=== PATIENT | male | born 1985 | race African-American/Black ===

== ENCOUNTER 2017-10-01 00:27 | Emergency (ER) | payer MEDICAID ==
[~2017-10-01] VITALS: Ht 182.9 cm; Wt 79.0 kg
[2017-10-01] MEDS ORDERED: SODIUM CHLORIDE 0.9% 1,000 ML IV ONE (00:49)
[2017-10-01 01:18] LABS: CHLORIDE 103 mEq/L (98-107)
[2017-10-01 01:20] LABS: BASOPHILS % 0.2 % (0.0-2.0); EOSINOPHILS % 1.1 % (0.0-5.0); HEMATOCRIT. 44.5 % (42.0-52.0); HEMOGLOBIN. 15.8 g/dL (14.0-18.0); LYMPHOCYTES % 35.7 % (20.0-50.0); MEAN CORPUSCULAR VOLUME 92.7 fL (80.0-94.0); MEAN PLATELET VOLUME 8.3 fl (7.4-10.4); MONOCYTES % 8.5 % (2.0-8.0); NEUTROPHILS % 54.5 % (40.0-76.0); PLATELET 288 x1000/uL (130-400); RED CELL DISTRIBUTION WIDTH 12.5 % (11.6-14.6)
[2017-10-01 01:22] LABS: ETHANOL BLOOD 119 mg/dL
[2017-10-01] MEDS ORDERED: SODIUM CHLORIDE 0.9% 1,000 ML IV NR (02:25)
[2017-10-01 03:45] VITALS: BP 131/68
== END 2017-10-01 04:06 | disposition home or self-care (01) ==
LOC: ER 00:41
DX: F10.129 Alcohol abuse with intoxication, unspecified (principal); E87.2 Acidosis; F17.200 Nicotine dependence, unspecified, uncomplicated; F14.10 Cocaine abuse, uncomplicated; F15.10 Other stimulant abuse, uncomplicated; F12.10 Cannabis abuse, uncomplicated; Y90.5 Blood alcohol level of 100-119 mg/100 ml
CPT/HCPCS: 36415; 70450; 80053; 83605; 83690; 83880; 84484; 85025; 93005; 96360; 96361; 99285; G0482; J7030

== ENCOUNTER 2022-12-09 15:33 | Emergency (ER) | payer MEDICAID, OTHER ==
[~2022-12-09] VITALS: Ht 175.3 cm; Wt 73.0 kg
[2022-12-09 15:35] VITALS: TEMP 98.3; O2SAT 100
[2022-12-09] MEDS ORDERED: MORPHINE SULFATE 4 MG/ML CPJ (NOT FOR IM USE) IV ONE (15:45)
[2022-12-09] MEDS ORDERED: TETANUS, DIPHTHERIA, PERTUSSIS VAC/PF 0.5ML (>10YR OLD) IM ONE (15:45)
[2022-12-09] MEDS ORDERED: CEFAZOLIN 1000MG PREMIX 50 ML IV ONE (15:45)
[2022-12-09 16:15] VITALS: BP 158/98; PULSE 60; RESP 18
[2022-12-09 16:46] LABS: BASOPHILS % 0.5 % (0.0-2.0); EOSINOPHILS % 1.4 % (0.0-5.0); HEMATOCRIT. 38.2 % (42.0-52.0); HEMOGLOBIN. 13.1 g/dL (14.0-18.0); LYMPHOCYTES % 27.2 % (20.0-50.0); MEAN CORPUSCULAR HEMOGLOBIN 30.9 pg (28.0-32.0); MONOCYTES % 8.1 % (2.0-8.0); NEUTROPHILS % 62.8 % (40.0-76.0); RED BLOOD CELL COUNT 4.25 mill/uL (4.7-6.1); RED CELL DISTRIBUTION WIDTH 12.2 % (11.6-14.6)
[2022-12-09 16:52] LABS: CHLORIDE 111 mEq/L (98-107); PROTHROMBIN TIME 11.1 sec (9.6-11.0)
[2022-12-09] MEDS ORDERED: CALCIUM 1250MG TABLET (500MG ELEMENTAL CALCIUM) PO NR (17:15)
[2022-12-09] MEDS ORDERED: POTASSIUM CHLORIDE 20MEQ/PACKET PO NR (17:15)
[2022-12-09 17:47] LABS: PLATELET 223 x1000/uL (130-400)
== END 2022-12-09 18:17 | disposition left against medical advice (07) ==
LOC: ER 15:33
DX: S81.802A Unspecified open wound, left lower leg, initial encounter (principal); F14.10 Cocaine abuse, uncomplicated; F12.10 Cannabis abuse, uncomplicated; F15.10 Other stimulant abuse, uncomplicated; X58.XXXA Exposure to other specified factors, initial encounter; Y93.89 Activity, other specified; Y92.89 Other specified places as the place of occurrence of the external cause; Y99.8 Other external cause status
CPT/HCPCS: 80053; 85025; 85610; 86850; 86900; 86901; 36415; 73590; 90715; 90471; 96365; 96375; 99284; J0690; J2270; Z7610 ×6